=== PATIENT | female | born 1985 | race Caucasian/White ===

== ENCOUNTER 2022-04-23 16:59 | Emergency (ER) | payer SELFPAY ==
--- OUTSIDE RECORDS SUMMARY | 2022-04-23 17:03 | XMS REPORT | Continuity of Care Document ---
:1985 Author Organization [facility] t Address [address] [place] [address] Dr. Sage[address] [place] [address] Care Team Providers Name Role Phone Unavailable Unavailable Unavailable Problems This patient has no known problems. Allergies, Adverse Reactions, Alerts This patient has no known allergies or adverse reactions. Medications This patient has no known medications. Procedures This patient has no known procedures. Encounters Start End Encounter Admission Attending Care Care Encounter Source Date/Time Date/Time Type Type Clinicians Facility Department ID 2022-04-23 2022-04-23 Outpatient [facility] [id number] Barry 13:27:26 13:27:26 [id number] F Zaki 2022-04-19 2022-04-19 Outpatient [facility] [id number] Barry 09:32:29 09:32:29 1203 F Zaki Results Test Description Test Time Test Comments Results Result Comments Source PAP TEST, THINPREP, IMAGED 2021-07-16 13:16:36 Test Item Value Reference Range Interpretation Comme nts SOURCE: (test code = Cervical/Endocervical 8001) SLIDES: (test code = 1 8011) LMP: (test code = 8021) 07/05/2021 SPECIMEN ADEQUACY: (test (NOTE) Sa tisfactory for code = 85669) evaluation. En docervical cells/transform ation zone component prese nt. INTERPRETATION: (test NILM/NO EPITH. ABNORMALITY;SEE code = 54554) BELOW --- NEGATIVE FOR INTRAEPITHELIAL LESION OR MALIGNANCY Reactive cellular change s present (NILM).-------- OTHER COMMENTS: (test (NOTE) Shift in caden suggestive code = 8081) of bacterial va ginosis. STRATEGY SPECIALIST: (test Leonila Antonio code = 8101) PATHOLOGIST Mily Link M.D. INTERPRETATION BY: (test code = 8122) LOCATION: (test code = (NOTE) Speci mens processed and [address]) interpreted at [facility] [address], , CLIA: [id number] CPT: (test code = 8140) (NOTE) 8817 5, 60086 UNLESS OTHERWISE INDIC ATED, COMPUTER AIDED AND CYTOTECHNOLOGIS T SCREENING PERFORMED. The Pap test is a screening carissa t with an inherent, but l ow probability of error. Your patient should be reminded to consult you immediately if she experien moses any suspicious sign s or symptoms, regar dless of her Pap test re sult. An alternate repor t format containing imag es or consolidated pr ior Pap history is avai lableanne as applicable. HPV HIGH RISK WITH GENOTYPE, [id number] 16:08:47 Test Item Value Reference Range Interpretation Comments HPV HIGH RISK INTERP NEGATIVE NEGATIVE (test code = 85061) HPV 16 (test code = NEGATIVE 10055) HPV 18 (test code = NEGATIVE 48720) HPV, HR, OTHER NEGATIVE Testing meth odology is GENOTYPES (test code real-ti me PCR utilizing = 95528) hydrolysis prob es with the [employer] 4800 system. The carissa t individually de tects genotypes 16 an d 18, as well as the oth er 12 high risk types (31,33,35,39,45 ,51,52,56 ,58,59,66,68). The expected result is negative. A neg ative result does not rule out the presence of HPV not included in the genotype set, a low leve l of infection or sp ecimen sampling error. UNLESS OTHERWISE INDIC ATED, ALL TESTING PERFORM ED [facility], [facility]. [address] [place] [address] LABORATORY DIRE CTOR: JOAN THEODORE M.D. CLIA NUMBER [id number] [place] [id number] CT/NG, NAAT, [id number] 09:14:07 Test Item Value Reference Range Interpretation Comments GONORRHEA, NAAT POSITIVE NEGATIVE A IMPORTA NT NOTICE: SEE (test code = [place] [address]) [email or web address] Note: Assay methodology is nucleic acid amplification b y rug hooker m ediated amplification ( TMA) utilizing the A ptima Combo 2 Assay. CHLAMYDIA, NAAT NEGATIVE NEGATIVE IMPORTA NT NOTICE: SEE (test code = [place] [address]) [email or web address] Note: Assay methodology is nucleic acid amplification b y rug hooker m ediated amplification ( TMA) utilizing the A ptima Combo 2 Assay. UNLESS OTHERWISE INDICATED, ALL TESTING PERFORMED [facility] PATHOLOGY [facility], [facility]. [address] [place] [address] [facility] DIRECTOR: JOAN OSORIO M.D. CLIA NUMBER [id number] CAP ACCREDITATION N O. [id number] VAGINAL PATHOGENS DNA [id number] 13:40:01 Test Item Value Reference Range Interpretation Comments AGNIESZKA SPECIES (test code = 16701) NEGATIVE NEGATIVE G. VAGINALIS (test code = ) POSITIVE NEGATIVE A T. VAGINALIS (test code = 60866) NEGATIVE NEGATIVE [id number] 05:09:13 Test Item Value Reference Range Interpretation Comments RPR RESULT (test code = NON-REACTIVE NON-REACTIVE 3501) RPR TITER (test code = 3500) NOT INDIC. TITER NOT INDIC. HIV 1/2 4TH GEN, RFLX [id number] 04:41:38 Test Item Value Reference Range Interpretation Comments HIV 1/2 4TH GEN, RFLX CONF (test NON-REACTIVE NON-REACTIVE code = 3514) HEPATITIS PANEL, [id number] 04:41:38 Test Item Value Reference Range Interpretation Comments HEPATITIS A IgM (test NON-REACTIVE NON-REACTIVE code = 52598) HEPATITIS B CORE IgM NON-REACTIVE NON-REACTIVE (test code = 4644) HEPATITIS B SURF AG NON-REACTIVE NON-REACTIVE (test code = 2739) HEPATITIS C ANTIBODY NON-REACTIVE NON-REACTIVE (test code = 4675) INTERPRETATION (NOTE) Hepatitis A HEPATITIS A: (test code sero logy shows no = 2552) evidence of acu te hepatitis A. INTERPRETATION (NOTE) Hepatitis B HEPATITIS B: (test code sero logy shows no = 18393) evidence of acu te hepatitis B and no indication of exposure to hepatitis B vir us in the previous malina eight months. INTERPRETATION (NOTE) Hepatitis C HEPATITIS C: (test code sero logy shows no = 81894) evidence of exposure to hepatitisC viru s at this time. I t can take up to 12 months after exposure tothe hepatitis C vir us for antibodies to become detectab le in the blood in certain patient s.
--- NOTE | 2022-04-23 18:38 | RAD REPORT ---
EXAM DESCRIPTION: RAD - Tib Fib Right - 04/23/2022 6:25 pm CLINICAL HISTORY: Right leg pain FINDINGS: No fracture is seen. No bony abnormality is displayed. 2 millimeter density within the subcutaneous tissues lateral ankle may represent a calcification or f oreign body
--- NOTE | 2022-04-23 19:43 | RAD REPORT ---
EXAM DESCRIPTION: US - Extremity Venous Uni Ltd - 04/23/2022 7:26 pm CLINICAL HISTORY: PAIN COMPARISON: None. TECHNIQUE: Real-time sonographic evaluation of the right lower extremity deep venous systems was per formed. FINDINGS: Normal compressibility, flow augmentation, phasic flow and spontaneous flow are identified in the right lower extremity common femoral, superficial femoral, popliteal and posterior tibial vei ns. No intraluminal filling defects seen. No mass or abnormal fluid collection in the soft tissues. IMPRESSION: No DVT in the right lower extremity.
--- NOTE | 2022-04-23 20:12 | EDPHYS ---
Physician Documentation [facility] Name: Marion Pepe Age: 36 yrs Sex: Female : 1985 Arrival Date: 04/23/2022 Time: 17:02 Bed 11 Private MD: ED Physician Paddy Leon HPI: 04/23 17:30 This 36 yrs old Female presents to ER via Ambulatory with complaints of Leg Pain. sb4 17:30 The patient presents with pain, that is acute. The complaints affect the lateral aspect sb4 of right calf. Context: resulted from the patient can fully bear weight, the patient is able to ambulate, without difficulty, Problem is a result from a previous injury: No. Onset: The symptoms/episode began/occurred 3 day(s) ago. Modifying factors: The symptoms are alleviated by nothing. the symptoms are aggravated by weight bearing. Associated signs and symptoms: The patient has no apparent associated signs or symptoms. Severity of symptoms: At their worst the symptoms were mild. The patient has not experienced similar symptoms in the past. 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 - Social history:: Smoking status: Patient reports the use of cigarette tobacco products, smokes one pack cigarettes per day. ROS: 17:31 Constitutional: Negative for fever, chills, and weight loss, Eyes: Negative for injury, sb4 pain, redness, and discharge, ENT: Negative for injury, pain, and discharge, Cardiovascular: Negative for chest pain, palpitations, and edema, Respiratory: Negative for shortness of breath, cough, wheezing, and pleuritic chest pain, Abdomen/GI: Negative for abdominal pain, nausea, vomiting, diarrhea, and constipation, Skin: Negative for injury, rash, and discoloration. 17:31 MS/extremity: Positive for pain. Exam: 17:31 Constitutional: This is a well developed, well nourished patient who is awake, alert, sb4 and in no acute distress. Head/Face: Normocephalic, atraumatic. Eyes: Pupils equal round and reactive to light, extra-ocular motions intact. Periorbital areas with no swelling, redness, or edema. ENT: Mucous membranes moist. Cardiovascular: Regular rate and rhythm with a normal S1 and S2. Respiratory: Lungs have equal breath sounds bilaterally, clear to auscultation and percussion. No rales, rhonchi or wheezes noted. No increased work of breathing, no retractions or nasal flaring. Abdomen/GI: Soft, non-tender, no distension. Skin: Warm, dry with normal turgor. Normal color with no rashes, no lesions, and no evidence of cellulitis. MS/ Extremity: Pulses equal, no cyanosis. Neurovascular intact. Full, normal range of motion. Vital Signs: 17:20 BP 114 / 73; Pulse 83; Resp 15; Temp 98.7; Pulse Ox 100% ; Weight 82.55 kg; Height 5 vg1 ft. 8 in. (172.72 cm); Pain 7/10; 17:33 BP 118 / 72; Pulse 81; Resp 16; Pulse Ox 100% on R/A; ld1 19:14 BP 122 / 76; Pulse 85; Resp 16; Pulse Ox 100% on R/A; ld1 17:20 Body Mass Index 27.67 (82.55 kg, 172.72 cm) vg1 MDM: 17:24 Patient medically screened. sb4 20:10 Data reviewed: vital signs, radiologic studies, doppler, plain films. sb4 04/23 17:30 Order name: Tib Fib Right XRAY; Complete Time: 18:42 sb4 04/23 18:57 Order name: Extremity Venous Uni Ltd US; Complete Time: 20:05 sb4 Administered Medications: No medications were administered Disposition: 04/24 07:04 Co-signature as Attending Physician, Paddy Leon MD. rn Disposition Summary: 04/23/22 20:11 Discharge Ordered Location: Home sb4 Problem: new sb4 Symptoms: have improved sb4 Condition: Stable sb4 Diagnosis - Pain in right lower leg sb4 Followup: sb4 - With: Juan Ibanez MD - When: 1 week - Reason: If symptoms return, Worsening of condition, Recheck today's complaints Discharge Instructions: - Discharge Summary Sheet sb4 - Musculoskeletal Pain sb4 Forms: - Medication Reconciliation Form sb4 - Thank You Letter sb4 - Antibiotic Education sb4 - Prescription Opioid Use sb4 Prescriptions: - Diclofenac Sodium 75 mg Oral Tablet Sustained Release - take 1 tablet by ORAL route 2 times per day; 30 tablet; Refills: 0, Product sb4 Selection Permitted Signatures: Dispatcher [employer] Paddy Galan MD MD rn Maury, MECHE Jansen RN vg1 Ellyn Lawrence, NOBLE DICKEY sb4
--- NOTE | 2022-04-23 20:12 | ER ---
Nurse's Notes [facility] Name: Marion Pepe Age: 36 yrs Sex: Female : 1985 Arrival Date: 04/23/2022 Time: 17:02 Bed 11 Private MD: Diagnosis: Pain in right lower leg Presentation: 04/23 17:20 Chief complaint: Patient states: Lower Right leg pain x 1 week, denies any injury. vg1 States pain is a dull ache. Coronavirus screen: Vaccine status: Patient reports being unvaccinated. Client denies travel out of the [place] in the last 14 days. Ebola Screen: Patient negative for fever greater than or equal to 101.5 degrees Fahrenheit, and additional compatible Ebola Virus Disease symptoms. Initial Sepsis Screen: Does the patient meet any 2 criteria? No. Patient's initial sepsis screen is negative. Does the patient have a suspected source of infection? No. Patient's initial sepsis screen is negative. Risk Assessment: Do you want to hurt yourself or someone else? Patient reports no desire to harm self or others. Onset of symptoms was April 16, 2022. 17:20 Method Of Arrival: Ambulatory vg1 17:20 Acuity: JAVY 4 vg1 Triage Assessment: 17:22 General: Appears uncomfortable, Behavior is calm, cooperative. Pain: Complains of pain vg1 in lateral aspect of right calf Pain currently is 7 out of 10 on a pain scale. Pain began x 1 week. Musculoskeletal: Circulation, motion, and sensation intact. 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 - Social history:: Smoking status: Patient reports the use of cigarette tobacco products, smokes one pack cigarettes per day. Screenin:33 Abuse screen: Denies threats or abuse. Denies injuries from another. Nutritional ld1 screening: No deficits noted. Tuberculosis screening: No symptoms or risk factors identified. Fall Risk None identified. Assessment: 17:33 Reassessment: See triage assessment. ld1 19:14 Reassessment: Patient appears in no apparent distress at this time. Patient and/or ld1 family updated on plan of care and expected duration. Pain level reassessed. Patient is alert, oriented x 3, equal unlabored respirations, skin warm/dry/pink. Vital Signs: 17:20 BP 114 / 73; Pulse 83; Resp 15; Temp 98.7; Pulse Ox 100% ; Weight 82.55 kg; Height 5 vg1 ft. 8 in. (172.72 cm); Pain 7/10; 17:33 BP 118 / 72; Pulse 81; Resp 16; Pulse Ox 100% on R/A; ld1 19:14 BP 122 / 76; Pulse 85; Resp 16; Pulse Ox 100% on R/A; ld1 17:20 Body Mass Index 27.67 (82.55 kg, 172.72 cm) vg1 ED Course: 17:02 Patient arrived in ED. rg4 17:13 Ellyn Lawrence PA-C [facility]. sb4 17:13 Paddy Leon MD is Attending Physician. sb4 17:22 Triage completed. vg1 17:22 Arm band placed on. vg1 17:33 Afsaneh Burnham, MECHE is Primary Nurse. ld1 17:33 Patient has correct armband on for positive identification. Placed in gown. Bed in low ld1 position. Call light in reach. Side rails up X2. manager monitoring on. Pulse ox on. NIBP on. Door closed. Noise minimized. 17:33 No provider procedures requiring assistance completed. ld1 18:27 Tib Fib Right XRAY In Process Unspecified. EDMS 19:28 Extremity Venous Uni Ltd US In Process Unspecified. EDMS 20:11 Juan Ibanez MD is Referral Physician. sb4 20:20 Patient did not have IV access during this emergency room visit. ld1 Administered Medications: No medications were administered Medication: 17:33 VIS not applicable for this client. ld1 Outcome: 20:11 Discharge ordered by . sb4 20:20 Discharged to home ambulatory. ld1 20:20 Condition: stable 20:20 Discharge instructions given to patient, Instructed on discharge instructions, follow up and referral plans. medication usage, Demonstrated understanding of instructions, follow-up care, medications, Prescriptions given X 1. 20:20 Patient left the ED. ld1 Signatures: Dispatcher [employer] EDYesica Orri rg4 Justyna Mendiola, RN RN vg1 fAsaneh Burnham RN RN ld1 Ellyn Lawrence, NOBLE PAAnnalise sb4 Corrections: (The following items were deleted from the chart) 17:23 17:20 Chief complaint: Patient states: Lower Left leg pain x 1 week, denies any injury. vg1 States pain is a dull ache vg1
[2022-04-24 01:14] VITALS: TEMP 98.7; O2SAT 100
[2022-04-24 01:16] VITALS: BP 122/76
== END 2022-04-23 20:20 | disposition home or self-care (01) ==
LOC: ER 16:59
DX: M79.661 Pain in right lower leg (principal); F17.210 Nicotine dependence, cigarettes, uncomplicated; Z88.1 Allergy status to other antibiotic agents
CPT/HCPCS: 93971; 99284